=== PATIENT | male | born 1935 | race African-American/Black ===

== ENCOUNTER 2017-02-10 12:39 | Emergency (ER) | payer OTHER, BC ==
[~2017-02-10] VITALS: Ht 175.3 cm; Wt 87.2 kg
[~2017-02-10 12:39] MED LIST: Cozaar PO; DUREZOL 0.100 DROP/5 LEFT EYE; Durezol 0.05% Ophtha LEFT EYE; Glucophage PO; HYTRIN5 MG PO; Hytrin PO; LOSARTAN POTASS50 MG PO; METFORMIN HCL500 MG PO; PROSCAR5 MG; Proscar PO; TIMOPTIC-0100 DROP/1 LEFT EYE; Timoptic-0.5%,Isatol LEFT EYE; ZOCOR40 MG PO
[2017-02-10 14:07] LABS: HEMATOCRIT 37.1 % (38.0-50.0); MCH 26.2 PG (29.0-34.0); MCHC 32.3 G/DL (30.0-36.0); MEAN PLAT.VOLUME 10.5 uM^3 (9.0-12.4); PLATELET COUNT 243 K/uL (156-360); RBC DIS.WIDTH-CV 14.1 % (11.8-14.6); RBC DIS.WIDTH-SD 41.2 % (39-53); RED BLOOD COUNT 4.58 M/uL (4.00-5.50); WHITE BLOOD COUNT 7.4 K/uL (4.1-10.2)
[2017-02-10 14:18] LABS: CHLORIDE 107 mEq/L (99-109); POTASSIUM 4.1 mEq/L (3.7-5.4); SODIUM 141 mEq/L (136-147)
[2017-02-10 14:20] LABS: GLUCOSE 139 mg/dL (70-99)
[2017-02-10 14:21] LABS: ANION GAP 11 MEQ/L (2-14)
[2017-02-10 14:22] LABS: TOTAL BILIRUBIN 0.6 mg/dL (0.0-1.0)
[2017-02-10 14:23] LABS: SERUM ETHYL ALCOHOL < 10 mg/dL
[2017-02-10 14:24] LABS: ALKALINE PHOSPHATASE 66 IU/L (3-129); GFR ESTIMATE (CALCULATED) > 59 mL/min/
[2017-02-10 14:25] LABS: UREA NITROGEN (BUN) 10 mg/dL (9-23)
[2017-02-10 18:20] LABS: ADD MIUA? NO; BILIRUBIN NEGATIVE; BLOOD NEGATIVE; COLOR STRAW ((YELLOW)); GLUCOSE (STRIP) NEGATIVE; KETONES NEGATIVE; LEUKOCYTES NEGATIVE; NITRITE NEGATIVE; PROTEIN (STRIP) NEGATIVE; UROBILINOGEN 0.2 MG/DL (0.2-1.0)
[2017-02-10 20:47] VITALS: BP 150/91
== END 2017-02-10 20:48 | disposition home or self-care (01) ==
LOC: EME 12:39
PROVIDERS: Emergency Medicine
DX: F03.91 Unspecified dementia, unspecified severity, with behavioral disturbance (principal); J45.909 Unspecified asthma, uncomplicated; E11.9 Type 2 diabetes mellitus without complications; E78.5 Hyperlipidemia, unspecified; I10 Essential (primary) hypertension
CPT/HCPCS: 80053; 81003; 85027; 90837; 99281; 99285; G0480

== ENCOUNTER 2017-02-20 19:24 | Emergency (ER) | payer OTHER, BC ==
[~2017-02-20] VITALS: Ht 170.2 cm; Wt 98.3 kg
[2017-02-20 19:57] LABS: EOSINOPHIL (%) 2.2 % (0-5); EOSINOPHIL COUNT 0.2 K/uL (0-0.3); IMMATURE GRANULOCYTE (%) 0.3 % (0.0-0.7); INSTRUMENT ABS NEUTROPHIL CT 4.5 K/uL; MCH 26.2 PG (29.0-34.0); MCHC 32.5 G/DL (30.0-36.0); MCV 80.5 FL (86-99); MEAN PLAT.VOLUME 11.3 uM^3 (9.0-12.4); MONOCYTE (%) 8.9 % (3-12); MONOCYTE COUNT 0.7 K/uL (0-0.8); NEUTROPHIL (%) 60.8 % (45-76); NEUTROPHIL COUNT 4.5 K/uL (1.8-6.4); PLATELET COUNT 250 K/uL (156-360); RBC DIS.WIDTH-CV 14.1 % (11.8-14.6); RBC DIS.WIDTH-SD 41.2 % (39-53); RED BLOOD COUNT 4.47 M/uL (4.00-5.50); WHITE BLOOD COUNT 7.3 K/uL (4.1-10.2)
[2017-02-20 20:05] LABS: AMYLASE 50 IU/L (1-118); CHLORIDE 106 mEq/L (99-109); SODIUM 139 mEq/L (136-147)
[2017-02-20 20:07] LABS: GLUCOSE 128 mg/dL (70-99)
[2017-02-20 20:09] LABS: ANION GAP 8 MEQ/L (2-14)
[2017-02-20 20:10] LABS: SERUM ETHYL ALCOHOL < 10 mg/dL
[2017-02-20 20:11] LABS: GFR ESTIMATE (CALCULATED) > 59 mL/min/
[2017-02-20 20:12] LABS: UREA NITROGEN (BUN) 14 mg/dL (9-23)
[2017-02-20 20:14] LABS: LIPASE 27 U/L (1.0-51.0)
[2017-02-20 22:01] LABS: ADD MIUA? NO; BILIRUBIN NEGATIVE; BLOOD NEGATIVE; COLOR YELLOW ((YELLOW)); GLUCOSE (STRIP) NEGATIVE; KETONES NEGATIVE; LEUKOCYTES NEGATIVE; NITRITE NEGATIVE; PROTEIN (STRIP) 30; SPECIFIC GRAVITY 1.018 (1.000-1.030); UCUL ADDED? NO; UROBILINOGEN 0.2 MG/DL (0.2-1.0)
[2017-02-20 22:18] LABS: AMPHETAMINE NEGATIVE (500 ng/mL); BARBITURATES NEGATIVE (200 ng/mL); BENZODIAZEPINES NEGATIVE (150 ng/mL); COCAINE NEGATIVE (150 ng/mL); INTERNAL CONTROLS VALID? YES; METHADONE NEGATIVE (200 ng/mL); METHAMPHETAMINE NEGATIVE (500 ng/mL); OPIATES (MORPHINE) NEGATIVE (100 ng/mL); OXYCODONE NEGATIVE (100 ng/mL); PHENCYCLIDINE NEGATIVE (25 ng/mL); PROPOXYPHENE NEGATIVE (300 ng/mL); THC CANNABINOIDS NEGATIVE (50 ng/mL); TRICYCLIC ANTIDEPRESSANTS NEGATIVE (300 ng/mL)
[2017-02-21 01:52] VITALS: BP 144/74
== END 2017-02-21 01:52 | disposition home or self-care (01) ==
LOC: TRA 19:24
PROVIDERS: Emergency Medicine
DX: M25.522 Pain in left elbow (principal); M25.552 Pain in left hip; R51 Headache; R60.0 Localized edema; M54.2 Cervicalgia; Z91.81 History of falling; F03.90 Unspecified dementia, unspecified severity, without behavioral disturbance, psychotic disturbance, mood disturbance, and anxiety; J45.909 Unspecified asthma, uncomplicated; E11.9 Type 2 diabetes mellitus without complications; I10 Essential (primary) hypertension; Z79.84 Long term (current) use of oral hypoglycemic drugs
CPT/HCPCS: 70450; 72125; 72192; 73080; 73502; 80048; 81003; 82150; 83690; 85025; 86900; 86901; 99281; 99285; G0480

== ENCOUNTER 2017-07-17 10:05 | Inpatient (IN) | payer OTHER, BC ==
[~2017-07-17] VITALS: Ht 175.3 cm; Wt 77.0 kg
[~2017-07-17 10:05] MED LIST changes: -Cozaar PO; +FINASTERIDE5 MG PO; -Glucophage PO; -Hytrin PO; +LOSARTAN POTAS100 MG PO; -Proscar PO; +TERAZOSIN HCL5 MG PO
[2017-07-17 10:52] LABS: EOSINOPHIL (%) 0.1 % (0-5); HEMATOCRIT 34.5 % (38.0-50.0); IMMATURE GRANULOCYTE (%) 0.5 % (0.0-0.7); INSTRUMENT ABS NEUTROPHIL CT 6.6 K/uL; LYMPHOCYTE COUNT 0.6 K/uL (1.0-2.8); MCHC 33.3 G/DL (30.0-36.0); MEAN PLAT.VOLUME 10.6 uM^3 (9.0-12.4); MONOCYTE COUNT 1.2 K/uL (0-0.8); NEUTROPHIL (%) 78.2 % (45-76); NEUTROPHIL COUNT 6.6 K/uL (1.8-6.4); PLATELET COUNT 255 K/uL (156-360); RBC DIS.WIDTH-CV 13.9 % (11.8-14.6); RBC DIS.WIDTH-SD 40.8 % (39-53); RED BLOOD COUNT 4.26 M/uL (4.00-5.50); WHITE BLOOD COUNT 8.4 K/uL (4.1-10.2)
[2017-07-17 11:00] LABS: CHLORIDE 101 mEq/L (99-109); POTASSIUM 3.9 mEq/L (3.7-5.4); SODIUM 135 mEq/L (136-147)
[2017-07-17 11:02] LABS: GLUCOSE 153 mg/dL (70-99)
[2017-07-17 11:03] LABS: ANION GAP 12 MEQ/L (2-14)
[2017-07-17 11:04] LABS: TOTAL BILIRUBIN 0.6 mg/dL (0.0-1.0)
[2017-07-17 11:06] LABS: ALKALINE PHOSPHATASE 78 IU/L (3-129); GFR ESTIMATE (CALCULATED) > 59 mL/min/
[2017-07-17 11:07] LABS: UREA NITROGEN (BUN) 12 mg/dL (9-23)
[2017-07-17 11:47] LABS: INFLUENZA A VIRAL ANTIGEN POSITIVE; INFLUENZA B VIRAL ANTIGEN NEGATIVE
[2017-07-17] MEDS ORDERED: RISPERIDONE2 MG PO ×2 (14:12→14:24)
[2017-07-17] MEDS ORDERED: DORZOLAMIDE-TIM10 ML LEFT EYE (14:14)
[2017-07-17] MEDS ORDERED: LATANOPROST2.5 ML LEFT EYE (14:16)
[2017-07-17] MEDS ORDERED: PREDNISOLONE AC15 ML LEFT EYE (14:16)
[2017-07-17] MEDS ORDERED: DIVALPROEX SOD125 M1 PO (14:18)
[2017-07-17] MEDS ORDERED: EXELON1 EAC2 TD (14:22)
[2017-07-17 21:07] VITALS: BP 150/73
[2017-07-18] VITALS (8 sets, daily range): BP systolic 118–180; BP diastolic 62–90
[2017-07-18 05:32] LABS: ADD MIUA? YES; BILIRUBIN NEGATIVE; BLOOD LARGE; COLOR STRAW ((YELLOW)); GLUCOSE (STRIP) NEGATIVE; KETONES NEGATIVE; LEUKOCYTES NEGATIVE; NITRITE NEGATIVE; PROTEIN (STRIP) NEGATIVE; SPECIFIC GRAVITY 1.009 (1.000-1.030); UROBILINOGEN 0.2 MG/DL (0.2-1.0)
[2017-07-18 05:49] LABS: BACTERIA RARE /HPF; EPITHELIAL CELLS NONE SEEN /HPF; MUCUS TRACE /LPF; UCUL ADDED? NO; WHITE BLOOD CELLS 0-5 /HPF (0-5)
[2017-07-18 06:46] LABS: HEMATOCRIT 32.1 % (38.0-50.0); MCH 26.3 PG (29.0-34.0); MCHC 32.4 G/DL (30.0-36.0); MCV 81.1 FL (86-99); MEAN PLAT.VOLUME 11.3 uM^3 (9.0-12.4); PLATELET COUNT 233 K/uL (156-360); RBC DIS.WIDTH-SD 41.8 % (39-53); RED BLOOD COUNT 3.96 M/uL (4.00-5.50); WHITE BLOOD COUNT 8.9 K/uL (4.1-10.2)
[2017-07-18 07:10] LABS: ANION GAP 10 MEQ/L (2-14); CHLORIDE 108 MEQ/L (99-109); GFR ESTIMATE (CALCULATED) > 59 mL/min/; POTASSIUM 4.2 MEQ/L (3.7-5.4); SAMPLE HEMOLYSIS CHECK 0; SAMPLE ICTERIC CHECK 0; SAMPLE LIPEMIA CHECK 0; SODIUM 140 MEQ/L (136-147); UREA NITROGEN (BUN) 11 mg/dL (9-23)
[2017-07-18 07:26] LABS: GLUCOSE 75 mg/dL (70-99)
[2017-07-19 04:11] VITALS: BP 142/76
[2017-07-19 08:33] VITALS: BP 138/87
[2017-07-19 11:00] VITALS: BP 138/88
[2017-07-19 20:07] VITALS: BP 145/72
[2017-07-20 00:21] VITALS: BP 139/84
[2017-07-20 04:54] VITALS: BP 122/76
[2017-07-20 07:35] VITALS: BP 138/88
[2017-07-20 08:27] LABS: HEMATOCRIT 31.7 % (38.0-50.0); MCH 27.6 PG (29.0-34.0); MCHC 34.1 G/DL (30.0-36.0); MCV 81.1 FL (86-99); MEAN PLAT.VOLUME 10.5 uM^3 (9.0-12.4); PLATELET COUNT 239 K/uL (156-360); RBC DIS.WIDTH-CV 13.9 % (11.8-14.6); RED BLOOD COUNT 3.91 M/uL (4.00-5.50); WHITE BLOOD COUNT 6.4 K/uL (4.1-10.2)
[2017-07-20 08:50] LABS: ANION GAP 9 MEQ/L (2-14); CHLORIDE 103 MEQ/L (99-109); GFR ESTIMATE (CALCULATED) > 59 mL/min/; GLUCOSE 83 mg/dL (70-99); POTASSIUM 3.4 MEQ/L (3.7-5.4); SAMPLE HEMOLYSIS CHECK 0; SAMPLE ICTERIC CHECK 0; SAMPLE LIPEMIA CHECK 0; SODIUM 137 MEQ/L (136-147); UREA NITROGEN (BUN) 8 mg/dL (9-23)
[2017-07-20 09:09] LABS: POINT-OF-CARE METER ID UU14117124
[2017-07-20 09:56] LABS: MAGNESIUM 1.7 mg/dl (1.3-2.7)
[2017-07-20] MEDS ORDERED: FERROUS SULFAT325 MG PO (13:35)
[2017-07-20] MEDS ORDERED: TAMIFLU6 MG/1 ML PO (13:42)
[2017-07-20 16:34] LABS: POINT-OF-CARE METER ID UU14208753
[2017-07-20 22:04] LABS: POINT-OF-CARE METER ID UU14117124
[2017-07-20 23:33] VITALS: BP 158/94
[2017-07-21 08:27] VITALS: BP 159/72
[2017-07-21 12:15] VITALS: BP 151/78
[2017-07-21 15:50] VITALS: BP 162/70
[2017-07-21 19:38] VITALS: BP 154/78
[2017-07-22 00:23] VITALS: BP 162/76
[2017-07-22 00:32] LABS: POINT-OF-CARE METER ID UU14208753
[2017-07-22 03:33] VITALS: BP 144/79
[2017-07-22 06:07] LABS: POINT-OF-CARE METER ID UU14117124
[2017-07-22 07:38] VITALS: BP 142/76
[2017-07-22 09:27] LABS: HEMATOCRIT 33.7 % (38.0-50.0); MCH 26.2 PG (29.0-34.0); MCHC 32.9 G/DL (30.0-36.0); MCV 79.7 FL (86-99); MEAN PLAT.VOLUME 10.4 uM^3 (9.0-12.4); PLATELET COUNT 284 K/uL (156-360); RBC DIS.WIDTH-CV 13.7 % (11.8-14.6); RBC DIS.WIDTH-SD 39.3 % (39-53); RED BLOOD COUNT 4.23 M/uL (4.00-5.50); WHITE BLOOD COUNT 5.9 K/uL (4.1-10.2)
[2017-07-22 09:49] LABS: ANION GAP 11 MEQ/L (2-14); CHLORIDE 104 MEQ/L (99-109); POTASSIUM 3.7 MEQ/L (3.7-5.4); SAMPLE HEMOLYSIS CHECK 0; SAMPLE ICTERIC CHECK 0; SAMPLE LIPEMIA CHECK 0; SODIUM 140 MEQ/L (136-147)
[2017-07-22 09:55] LABS: GFR ESTIMATE (CALCULATED) > 59 mL/min/; GLUCOSE 84 mg/dL (70-99); UREA NITROGEN (BUN) 9 mg/dL (9-23)
== END 2017-07-22 14:48 | DRG 194 ==
LOC: EME 10:05 → 5EAST 12:29 → 3EAST 12:29 → EDOF 12:29 → ENRESERV 12:31 → EDOF 12:37 → CANRESERV 12:38 → ENRESERV 12:38 → 3EAST 19:32
PROVIDERS: Emergency Medicine; Internal Medicine; Physician Assistant
DX: J10.1 Influenza due to other identified influenza virus with other respiratory manifestations (principal); F02.81 Dementia in other diseases classified elsewhere, unspecified severity, with behavioral disturbance; F05 Delirium due to known physiological condition; G31.09 Other frontotemporal neurocognitive disorder; E11.3599 Type 2 diabetes mellitus with proliferative diabetic retinopathy without macular edema, unspecified eye; I10 Essential (primary) hypertension; D50.9 Iron deficiency anemia, unspecified; N40.0 Benign prostatic hyperplasia without lower urinary tract symptoms; H91.90 Unspecified hearing loss, unspecified ear; E78.2 Mixed hyperlipidemia; H35.20 Other non-diabetic proliferative retinopathy, unspecified eye; J45.909 Unspecified asthma, uncomplicated; H33.20 Serous retinal detachment, unspecified eye; H54.7 Unspecified visual loss; Z79.4 Long term (current) use of insulin; Z79.899 Other long term (current) drug therapy
CPT/HCPCS: 70450; 71010; 80048; 80053; 81003; 82948; 83605; 83735; 85025; 85027; 87040; 87502; 93005; 99281; 99285; J1644; J7030

== ENCOUNTER 2017-07-24 15:52 | Inpatient (IN) | payer OTHER, BC ==
[~2017-07-24] VITALS: Ht 180.3 cm; Wt 77.4 kg
[~2017-07-24 15:52] MED LIST changes: +DIVALPROEX SOD125 M1 PO; +DORZOLAMIDE-TIM10 ML LEFT EYE; +EXELON1 EAC2 TD; +FERROUS SULFAT325 MG PO; +LATANOPROST2.5 ML LEFT EYE; +PREDNISOLONE AC15 ML LEFT EYE; +RISPERIDONE2 MG PO; +TAMIFLU6 MG/1 ML PO
[2017-07-24 16:23] LABS: BASE EXCESS 4.8 mEq/L (-3 to +3); BICARBONATE 28.1 mEq/L (22-26); CARBOXY HGB 1.5 % (0-5); METHEMOGLOBIN 0.9 % (0-1.5); PCO2 36 mm Hg (35-45); PO2 89 mm Hg (80-100)
[2017-07-24 16:26] LABS: COMMENTS - BLOOD GASES A+C+; DEVICE NC; O2 FLOW 2 L/MIN; SITE RR
[2017-07-24 16:57] LABS: HEMATOCRIT 36.2 % (38.0-50.0); MCH 26.5 PG (29.0-34.0); MCHC 32.9 G/DL (30.0-36.0); MCV 80.6 FL (86-99); MEAN PLAT.VOLUME 10.3 uM^3 (9.0-12.4); PLATELET COUNT 310 K/uL (156-360); RBC DIS.WIDTH-SD 40.8 % (39-53); RED BLOOD COUNT 4.49 M/uL (4.00-5.50); WHITE BLOOD COUNT 10.5 K/uL (4.1-10.2)
[2017-07-24 17:00] LABS: CARBON DIOXIDE (BICARBONATE) 31.9 MEQ/L (20-31)
[2017-07-24 17:10] LABS: CHLORIDE 104 mEq/L (99-109); POTASSIUM 3.7 mEq/L (3.7-5.4); SODIUM 141 mEq/L (136-147)
[2017-07-24 17:13] LABS: ANION GAP 12 MEQ/L (2-14)
[2017-07-24 17:15] LABS: GFR ESTIMATE (CALCULATED) > 59 mL/min/
[2017-07-24 17:16] LABS: UREA NITROGEN (BUN) 13 mg/dL (9-23)
[2017-07-24 17:17] LABS: GLUCOSE 119 mg/dL (70-99)
[2017-07-24 17:20] LABS: TROP-I INTERPRETATION NEGATIVE; TROPONIN-I 0.01 ng/mL (0.0-0.30)
[2017-07-24] MEDS ORDERED: FERROUS SULFAT325 MG PO (19:55)
[2017-07-24] MEDS ORDERED: TAMIFLU30 MG PO (19:56)
[2017-07-24] MEDS ORDERED: PHILLIPS'400 MG/5 M PO (19:58)
[2017-07-24] MEDS ORDERED: TYLENOL REGULA325 MG PO (19:58)
[2017-07-24] MEDS ORDERED: DULCOLAX10 MG PR (19:58)
[2017-07-24 22:22] VITALS: BP 160/72
[2017-07-25 03:07] VITALS: BP 155/80
[2017-07-25 07:30] LABS: ADD MIUA? YES; BILIRUBIN NEGATIVE; BLOOD MODERATE; COLOR YELLOW ((YELLOW)); GLUCOSE (STRIP) NEGATIVE; KETONES NEGATIVE; LEUKOCYTES NEGATIVE; NITRITE NEGATIVE; PROTEIN (STRIP) 30; SPECIFIC GRAVITY 1.021 (1.000-1.030)
[2017-07-25 07:36] LABS: BACTERIA 1+ /HPF; EPITHELIAL CELLS RARE /HPF; HYALINE CASTS 0-5 /LPF; MUCUS 2+ /LPF; RED BLOOD CELLS TNTC /HPF (0-5)
[2017-07-25 11:00] VITALS: BP 140/67
[2017-07-25 16:00] VITALS: BP 192/94
[2017-07-25 23:31] VITALS: BP 160/84
[2017-07-26 03:54] VITALS: BP 192/84
[2017-07-26 04:33] VITALS: BP 171/69
[2017-07-26 05:39] LABS: HEMATOCRIT 31.8 % (38.0-50.0); MCH 26.8 PG (29.0-34.0); MCHC 33.3 G/DL (30.0-36.0); MCV 80.5 FL (86-99); MEAN PLAT.VOLUME 10.3 uM^3 (9.0-12.4); PLATELET COUNT 297 K/uL (156-360); RBC DIS.WIDTH-SD 40.5 % (39-53); RED BLOOD COUNT 3.95 M/uL (4.00-5.50); WHITE BLOOD COUNT 8.8 K/uL (4.1-10.2)
[2017-07-26 06:11] LABS: ANION GAP 10 MEQ/L (2-14); CHLORIDE 104 MEQ/L (99-109); GFR ESTIMATE (CALCULATED) > 59 mL/min/; POTASSIUM 3.8 MEQ/L (3.7-5.4); SAMPLE HEMOLYSIS CHECK 0; SAMPLE ICTERIC CHECK 0; SAMPLE LIPEMIA CHECK 0; SODIUM 140 MEQ/L (136-147); UREA NITROGEN (BUN) 8 mg/dL (9-23)
[2017-07-26 06:16] LABS: GLUCOSE 82 mg/dL (70-99)
[2017-07-26 10:43] VITALS: BP 145/68
[2017-07-26] MEDS ORDERED: CYANOCOBAL1000 MCG/2 IM (14:11)
[2017-07-26] MEDS ORDERED: ERGOCALCIF50000 UNIT PO (14:11)
[2017-07-26 16:47] VITALS: BP 151/84
[2017-07-26 19:02] LABS: TROP-I INTERPRETATION NEGATIVE; TROPONIN-I 0.03 ng/mL (0.0-0.30)
[2017-07-26 20:00] VITALS: BP 150/82
[2017-07-27] VITALS: BP 156/78
[2017-07-27 06:18] LABS: TROP-I INTERPRETATION NEGATIVE; TROPONIN-I 0.01 ng/mL (0.0-0.30)
[2017-07-27 10:07] VITALS: BP 184/85
[2017-07-27 11:41] LABS: TROP-I INTERPRETATION NEGATIVE; TROPONIN-I < 0.01 ng/mL (0.0-0.30)
[2017-07-27 12:00] VITALS: BP 148/85
[2017-07-27 16:00] VITALS: BP 135/73
[2017-07-27 19:00] LABS: TROP-I INTERPRETATION NEGATIVE; TROPONIN-I < 0.01 ng/mL (0.0-0.30)
[2017-07-27 20:00] VITALS: BP 131/79
[2017-07-28] VITALS: BP 158/77
[2017-07-28 03:48] LABS: HEMATOCRIT 34.6 % (38.0-50.0); MCH 26.3 PG (29.0-34.0); MCHC 32.7 G/DL (30.0-36.0); MCV 80.7 FL (86-99); MEAN PLAT.VOLUME 10.8 uM^3 (9.0-12.4); PLATELET COUNT 314 K/uL (156-360); RBC DIS.WIDTH-CV 14.1 % (11.8-14.6); RBC DIS.WIDTH-SD 40.7 % (39-53); RED BLOOD COUNT 4.29 M/uL (4.00-5.50); WHITE BLOOD COUNT 9.6 K/uL (4.1-10.2)
[2017-07-28 04:00] VITALS: BP 155/70
[2017-07-28 04:03] LABS: CHLORIDE 103 mEq/L (99-109); POTASSIUM 3.7 mEq/L (3.7-5.4); SODIUM 139 mEq/L (136-147)
[2017-07-28 04:04] LABS: GLUCOSE 90 mg/dL (70-99)
[2017-07-28 04:06] LABS: ANION GAP 11 MEQ/L (2-14)
[2017-07-28 04:08] LABS: GFR ESTIMATE (CALCULATED) > 59 mL/min/
[2017-07-28 04:09] LABS: UREA NITROGEN (BUN) 9 mg/dL (9-23)
[2017-07-28 04:19] LABS: TROP-I INTERPRETATION NEGATIVE; TROPONIN-I < 0.01 ng/mL (0.0-0.30)
[2017-07-28 09:07] VITALS: BP 132/68
[2017-07-28 11:34] VITALS: BP 124/64
== END 2017-07-28 16:14 | DRG 948 ==
LOC: EME 15:52 → EDOF 20:13 → 5WEST 20:13 → EDOF 20:13 → ENRESERV 20:29 → 5WEST 22:02
PROVIDERS: Emergency Medicine; Family Medicine
DX: R41.82 Altered mental status, unspecified (principal); N39.0 Urinary tract infection, site not specified; R09.02 Hypoxemia; R31.29 Other microscopic hematuria; F03.90 Unspecified dementia, unspecified severity, without behavioral disturbance, psychotic disturbance, mood disturbance, and anxiety; I10 Essential (primary) hypertension; E78.5 Hyperlipidemia, unspecified; N40.0 Benign prostatic hyperplasia without lower urinary tract symptoms; Z66 Do not resuscitate; H91.90 Unspecified hearing loss, unspecified ear; H54.61 Unqualified visual loss, right eye, normal vision left eye; E11.9 Type 2 diabetes mellitus without complications; F05 Delirium due to known physiological condition; I44.7 Left bundle-branch block, unspecified; F41.9 Anxiety disorder, unspecified; Z87.891 Personal history of nicotine dependence; Z23 Encounter for immunization
CPT/HCPCS: 36600; 70450; 71010; 76770; 80048; 80164; 81003; 82803; 83605; 83880; 84484; 85027; 87040; 87086; 90686; 93005; 93306; 95819; 99281; 99285; G0378; J0696; J3420; J7050

== ENCOUNTER 2017-08-18 14:22 | Emergency (ER) | payer OTHER, BC ==
[~2017-08-18] VITALS: Ht 175.3 cm; Wt 81.8 kg
[~2017-08-18 14:22] MED LIST changes: +CYANOCOBAL1000 MCG/2 IM; +DULCOLAX10 MG PR; +ERGOCALCIF50000 UNIT PO; +PHILLIPS'400 MG/5 M PO; +TAMIFLU30 MG PO; +TYLENOL REGULA325 MG PO
[2017-08-18 20:44] VITALS: BP 162/81
== END 2017-08-18 20:45 | disposition home or self-care (01) ==
LOC: EME 14:22
DX: S09.90XA Unspecified injury of head, initial encounter (principal); W05.0XXA Fall from non-moving wheelchair, initial encounter; Y92.210 Daycare center as the place of occurrence of the external cause; F03.90 Unspecified dementia, unspecified severity, without behavioral disturbance, psychotic disturbance, mood disturbance, and anxiety; I10 Essential (primary) hypertension; J45.909 Unspecified asthma, uncomplicated; E11.9 Type 2 diabetes mellitus without complications; E78.5 Hyperlipidemia, unspecified; H54.40 Blindness, one eye, unspecified eye; H91.90 Unspecified hearing loss, unspecified ear; I73.9 Peripheral vascular disease, unspecified; Z79.84 Long term (current) use of oral hypoglycemic drugs
CPT/HCPCS: 70450; 99281; 99284

== ENCOUNTER 2017-12-02 09:18 | Observation (INO) | payer OTHER, BC ==
[~2017-12-02] VITALS: Ht 175.3 cm; Wt 73.9 kg
[2017-12-02 10:15] LABS: BASOPHIL (%) 0.4 % (0-1); BASOPHIL COUNT 0.1 K/uL (0-0.1); EOSINOPHIL (%) 0.3 % (0-5); HEMATOCRIT 33.5 % (38.0-50.0); HEMOGLOBIN 11.2 G/DL (12.5-16.6); IMMATURE GRANULOCYTE (%) 0.5 % (0.0-0.7); LYMPHOCYTE (%) 11.7 % (15-42); LYMPHOCYTE COUNT 1.4 K/uL (1.0-2.8); MCH 27.1 PG (29.0-34.0); MCHC 33.4 G/DL (30.0-36.0); MCV 80.9 FL (86-99); MONOCYTE (%) 7.6 % (3-12); MONOCYTE COUNT 0.9 K/uL (0-0.8); NEUTROPHIL (%) 79.5 % (45-76); NEUTROPHIL COUNT 9.6 K/uL (1.8-6.4); PLATELET COUNT 358 K/uL (156-360); RBC DIS.WIDTH-CV 14.5 % (11.8-14.6); RBC DIS.WIDTH-SD 41.9 % (39-53); RED BLOOD COUNT 4.14 M/uL (4.00-5.50)
[2017-12-02 10:24] LABS: ALBUMIN 3.8 g/dL (3.2-4.8)
[2017-12-02 10:25] LABS: CHLORIDE 102 mEq/L (99-109); SODIUM 139 mEq/L (136-147)
[2017-12-02 10:27] LABS: GLUCOSE 101 mg/dL (70-99); TOTAL PROTEIN 6.6 g/dL (6.4-8.3)
[2017-12-02 10:29] LABS: TOTAL BILIRUBIN 0.8 mg/dL (0.0-1.0)
[2017-12-02 10:30] LABS: ALKALINE PHOSPHATASE 84 IU/L (3-129)
[2017-12-02 10:31] LABS: CREATININE 0.8 mg/dL (0.6-1.3); GFR ESTIMATE (CALCULATED) > 59 mL/min/ (58.99-99999)
[2017-12-02 10:32] LABS: AST (GOT) 15 IU/L (2-34); UREA NITROGEN (BUN) 16 mg/dL (9-23)
[2017-12-02 10:33] LABS: ALT (GPT) 8 IU/L (3-49)
[2017-12-02 10:34] LABS: CREATINE KINASE 620 IU/L (1-294); TOTAL CK 620 IU/L (1-294)
[2017-12-02 10:35] LABS: TROP-I INTERPRETATION NEGATIVE; TROPONIN-I 0.03 ng/mL (0.0-0.30)
[2017-12-02 10:36] LABS: APPEARANCE SL.HAZY ((CLEAR)); BILIRUBIN NEGATIVE; BLOOD LARGE; COLOR YELLOW ((YELLOW)); GLUCOSE (STRIP) NEGATIVE; KETONES 20; LEUKOCYTES NEGATIVE; NITRITE NEGATIVE; PROTEIN (STRIP) 100; SPECIFIC GRAVITY 1.021 (1.000-1.030)
[2017-12-02 10:39] LABS: CK-MB 2.7 ng/mL (0.0-4.9); CKMB RELATIVE INDEX 0.4 (0.0-3.9)
[2017-12-02 10:46] LABS: BACTERIA NONE SEEN /HPF; CALCIUM OXALATE CRYSTALS 2+ /HPF; EPITHELIAL CELLS RARE /HPF; HYALINE CASTS 0-5 /LPF; MUCUS 1+ /LPF; RED BLOOD CELLS TNTC /HPF (0-5); UCUL ADDED? YES; WHITE BLOOD CELLS 0-5 /HPF (0-5)
[2017-12-02] MEDS ORDERED: FISH OIL 1,0001 EAC7 PO (12:45)
[2017-12-02] MEDS ORDERED: B-12500 MC1 SL (12:45)
[2017-12-02 17:45] VITALS: BP 127/66
[2017-12-02 20:00] VITALS: BP 146/77
[2017-12-03] VITALS: BP 132/69
[2017-12-03 04:19] VITALS: BP 124/71
[2017-12-03 06:07] LABS: CHLORIDE 105 MEQ/L (99-109); CREATINE KINASE 290 IU/L (1-294); CREATININE 0.8 MG/DL (0.6-1.3); GFR ESTIMATE (CALCULATED) > 59 mL/min/ (58.99-99999); GLUCOSE 110 mg/dL (70-99); HEMATOCRIT 30.3 % (38.0-50.0); HEMOGLOBIN 9.9 G/DL (12.5-16.6); MCH 26.9 PG (29.0-34.0); MCHC 32.7 G/DL (30.0-36.0); MCV 82.3 FL (86-99); PLATELET COUNT 328 K/uL (156-360); POTASSIUM 3.9 MEQ/L (3.7-5.4); RBC DIS.WIDTH-CV 14.6 % (11.8-14.6); RBC DIS.WIDTH-SD 43.7 % (39-53); RED BLOOD COUNT 3.68 M/uL (4.00-5.50); SODIUM 139 MEQ/L (136-147); UREA NITROGEN (BUN) 14 mg/dL (9-23)
[2017-12-03 08:00] VITALS: BP 129/75
[2017-12-03 12:00] VITALS: BP 145/83
[2017-12-03 16:00] VITALS: BP 135/78
[2017-12-03 20:00] VITALS: BP 122/62
[2017-12-04] VITALS: BP 122/56
[2017-12-04 04:35] VITALS: BP 137/68
[2017-12-04 07:46] VITALS: BP 157/72
[2017-12-04 12:11] VITALS: BP 166/75
[2017-12-04 16:00] VITALS: BP 116/71
[2017-12-04 19:30] VITALS: BP 150/82
[2017-12-05 00:43] VITALS: BP 164/86
[2017-12-05 04:28] VITALS: BP 137/84
[2017-12-05 07:48] VITALS: BP 142/79
[2017-12-05 13:02] LABS: BASOPHIL (%) 1.1 % (0-1); BASOPHIL COUNT 0.1 K/uL (0-0.1); EOSINOPHIL (%) 2.1 % (0-5); EOSINOPHIL COUNT 0.1 K/uL (0-0.3); HEMATOCRIT 31.6 % (38.0-50.0); HEMOGLOBIN 10.4 G/DL (12.5-16.6); IMMATURE GRANULOCYTE (%) 0.3 % (0.0-0.7); LYMPHOCYTE (%) 25.7 % (15-42); LYMPHOCYTE COUNT 1.6 K/uL (1.0-2.8); MCH 27.2 PG (29.0-34.0); MCHC 32.9 G/DL (30.0-36.0); MCV 82.7 FL (86-99); MONOCYTE (%) 11.7 % (3-12); MONOCYTE COUNT 0.7 K/uL (0-0.8); NEUTROPHIL (%) 59.1 % (45-76); NEUTROPHIL COUNT 3.7 K/uL (1.8-6.4); PLATELET COUNT 347 K/uL (156-360); RBC DIS.WIDTH-CV 14.6 % (11.8-14.6); RBC DIS.WIDTH-SD 43.7 % (39-53); RED BLOOD COUNT 3.82 M/uL (4.00-5.50); WHITE BLOOD COUNT 6.3 K/uL (4.1-10.2)
[2017-12-05 13:19] LABS: CHLORIDE 107 MEQ/L (99-109); CREATININE 0.7 MG/DL (0.6-1.3); GFR ESTIMATE (CALCULATED) > 59 mL/min/ (58.99-99999); GLUCOSE 164 mg/dL (70-99); POTASSIUM 3.7 MEQ/L (3.7-5.4); SODIUM 142 MEQ/L (136-147); UREA NITROGEN (BUN) 13 mg/dL (9-23)
[2017-12-05 15:43] VITALS: BP 144/82
== END 2017-12-05 18:26 | disposition home or self-care (01) ==
LOC: EME 09:18 → EDOF 11:59 → 5SOUTH 11:59 → ENRESERV 11:59 → 5SOUTH 11:59 → ENRESERV 16:49 → 5SOUTH 17:18
PROVIDERS: Emergency Medicine; Internal Medicine; Physician Assistant
DX: J69.0 Pneumonitis due to inhalation of food and vomit (principal); G30.9 Alzheimer's disease, unspecified; F02.80 Dementia in other diseases classified elsewhere, unspecified severity, without behavioral disturbance, psychotic disturbance, mood disturbance, and anxiety; D50.9 Iron deficiency anemia, unspecified; Z66 Do not resuscitate; E04.1 Nontoxic single thyroid nodule; I71.2 Thoracic aortic aneurysm, without rupture; I70.0 Atherosclerosis of aorta; I25.10 Atherosclerotic heart disease of native coronary artery without angina pectoris; K76.9 Liver disease, unspecified; N28.9 Disorder of kidney and ureter, unspecified; R31.29 Other microscopic hematuria; E11.9 Type 2 diabetes mellitus without complications; E78.5 Hyperlipidemia, unspecified; I10 Essential (primary) hypertension; M62.82 Rhabdomyolysis; N40.0 Benign prostatic hyperplasia without lower urinary tract symptoms; H54.40 Blindness, one eye, unspecified eye; H91.90 Unspecified hearing loss, unspecified ear
CPT/HCPCS: 70450; 71045; 71250; 80048; 80053; 81003; 82550; 82553; 82948; 84484; 85025; 85027; 87040; 87086; 87502; 92526 GN; 92610 GN; 93005; 97530 GO; 99281; 99285; G0378; J1650; J2543; J7030; J7042; J7050

== ENCOUNTER 2018-02-16 10:20 | Emergency (ER) | payer OTHER, BC ==
[~2018-02-16] VITALS: Ht 180.3 cm; Wt 72.7 kg
[~2018-02-16 10:20] MED LIST changes: +B-12500 MC1 SL; +FISH OIL 1,0001 EAC7 PO
[2018-02-16 11:15] VITALS: BP 139/75
== END 2018-02-16 11:15 | disposition home or self-care (01) ==
LOC: EME 10:20
DX: S00.81XA Abrasion of other part of head, initial encounter (principal); W19.XXXA Unspecified fall, initial encounter; F03.90 Unspecified dementia, unspecified severity, without behavioral disturbance, psychotic disturbance, mood disturbance, and anxiety; I10 Essential (primary) hypertension; E78.5 Hyperlipidemia, unspecified; E11.9 Type 2 diabetes mellitus without complications
CPT/HCPCS: 70450; 99281; 99283